=== PATIENT | male | born 1975 | race Caucasian/White ===

== ENCOUNTER → 2021-06-18 | Outpatient (CLI) | payer MEDICARE, OTHER | LOC: KOH-I 08:00 | DX: J31.0 Chronic rhinitis (principal); H10.45 Other chronic allergic conjunctivitis | CPT/HCPCS: 70486 ==

== ENCOUNTER 2022-04-27 12:00 | Inpatient (IN) | payer MEDICARE, OTHER ==
[~2022-04-27] VITALS: Ht 182.9 cm; Wt 99.8 kg
[2022-04-27 12:53] LABS: HEMOGLOBIN 16.3 gm/dl (14.0-17.5); RED BLOOD COUNT 5.28 M/UL (4.20-5.50); WHITE BLOOD COUNT 11.3 K/UL (4.5-11.0)
[2022-04-27 13:15] LABS: BUN/CREATININE RATIO 12 (0-10)
[2022-04-27] MEDS ORDERED: NYSTATIN60 GM TOP (18:53)
[2022-04-27] MEDS ORDERED: CYANOCOBAL1000 MCG/1 INJ (18:54)
[2022-04-27] MEDS ORDERED: BACLOFEN10 MG PO (18:54)
[2022-04-27] MEDS ORDERED: STELARA45 MG/0.5 SQ (18:55)
[2022-04-27] MEDS ORDERED: DEXILANT60 MG PO (18:55)
[2022-04-27] MEDS ORDERED: AZELASTINE137 MCG/0. (18:55)
[2022-04-27] MEDS ORDERED: FLONASE 0.05% N16 GM (18:56)
[2022-04-27] MEDS ORDERED: LEVOCETIRIZINE D5 MG PO (18:56)
[2022-04-27] MEDS ORDERED: FAMOTIDINE40 MG PO (18:56)
[2022-04-27] MEDS ORDERED: PROAIR HFA8.5 GM INH (18:57)
[2022-04-27] MEDS ORDERED: LISINOPRIL10 MG PO (18:57)
[2022-04-27] MEDS ORDERED: MONTELUKAST SOD10 MG PO (18:57)
[2022-04-27] MEDS ORDERED: PROMETHAZINE HC25 M1 PO (18:58)
[2022-04-27] MEDS ORDERED: TYLENOL EXTRA500 MG PO (18:58)
[2022-04-27] MEDS ORDERED: MUCUS RELIEF600 MG PO (18:59)
--- NOTE | 2022-04-27 19:48 | NUR ---
DAMIAN FROM ED CALLED REPORT AT 194 STATED PATIENTS NG TUBE WAS VERIFIED BY X RAY TO PUT HIM ON INT SUCTION. I REVIEWED RESULTS AND THEY WERE NOT POSTED. I CALLED RADIOLOGY TO VERIFY AND WAS TOLD THAT IT WAS NOT REVIEWED AND IT WILL BE POSTED AFTER REVIEW. PATIENT NOT HOOKED TO SUCTION AT THIS TIME. ALSO I CONTACTED PROVIDER TO REQUEST NUMBING SPRAY FOR PATIENTS THROAT TO EASE THE IRRITATION OF HIS NG TUBE AND THROAT. ORDERS PLACED AND PATIENT RECIEVED NUMBING SPRAY.
--- NOTE | 2022-04-28 05:53 | NUR ---
PATIENTS LIGHTS NOT WORKING IN ROOM WORK ORDER PUT IN FOR REPAIRS
[2022-04-28 06:18] LABS: HEMOGLOBIN 14.6 gm/dl (14.0-17.5); RED BLOOD COUNT 4.82 M/UL (4.20-5.50)
[2022-04-28 06:32] LABS: WHITE BLOOD COUNT 8.1 K/UL (4.5-11.0)
[2022-04-28 06:42] LABS: BUN/CREATININE RATIO 14 (0-10)
[2022-04-29 04:05] LABS: HEMOGLOBIN 13.1 gm/dl (14.0-17.5); RED BLOOD COUNT 4.43 M/UL (4.20-5.50); WHITE BLOOD COUNT 7.6 K/UL (4.5-11.0)
[2022-04-29 04:32] LABS: BUN/CREATININE RATIO 11 (0-10)
[2022-04-30 04:22] LABS: RED BLOOD COUNT 4.32 M/UL (4.20-5.50)
[2022-04-30 04:38] LABS: WHITE BLOOD COUNT 5.4 K/UL (4.5-11.0)
[2022-04-30 07:42] LABS: BUN/CREATININE RATIO 11 (0-10)
[2022-05-01 02:53] LABS: HEMOGLOBIN 12.7 gm/dl (14.0-17.5); RED BLOOD COUNT 4.22 M/UL (4.20-5.50); WHITE BLOOD COUNT 6.3 K/UL (4.5-11.0)
[2022-05-01 03:27] LABS: BUN/CREATININE RATIO 14 (0-10)
[2022-05-01] MEDS ORDERED: PREDNISONE 20 M20 MG PO (09:08)
[2022-05-01] MEDS ORDERED: INVANZ 1 GM VIAL1 GM IV (09:08)
[2022-05-01] MEDS ORDERED: PROTONIX40 MG PO (09:14)
== END 2022-05-01 18:08 | disposition short-term general hospital (02) | DRG 389 ==
LOC: ER1 12:00 → MED SURG 4 16:54 → CDU 16:54 → MED SURG 4 19:17
PROVIDERS: Emergency Medicine; Internal Medicine; Physician Assistant; ADMIT Internal Medicine
DX: K56.609 Unspecified intestinal obstruction, unspecified as to partial versus complete obstruction (principal); K50.012 Crohn's disease of small intestine with intestinal obstruction; K31.84 Gastroparesis; I10 Essential (primary) hypertension; J45.909 Unspecified asthma, uncomplicated; F41.9 Anxiety disorder, unspecified; Z90.49 Acquired absence of other specified parts of digestive tract; Z98.890 Other specified postprocedural states; Z88.8 Allergy status to other drugs, medicaments and biological substances; Z82.3 Family history of stroke; Z80.0 Family history of malignant neoplasm of digestive organs; Z80.8 Family history of malignant neoplasm of other organs or systems; Z79.52 Long term (current) use of systemic steroids
CPT/HCPCS: 36415; 74018; 80048; 80053; 81001; 82550; 82553; 83690; 83735; 84484; 85025; 85027; 94760; 96374; 96375; 99285; J1335; J1650; J2270; J2405; Q9967